=== PATIENT | male | born 1985 | race African-American/Black ===

== ENCOUNTER 2016-12-13 18:06 | Emergency (ER) | payer OTHER ==
[~2016-12-13] VITALS: Ht 182.9 cm; Wt 90.7 kg
[~2016-12-13 18:06] MED LIST: BENADRYL A12.5 MG/5 PO; MYLANTA 12 OZ355 M1 GT; NOHOMEMEDICATIONS; ULTRAM 50MG TAB50 MG PO; XANAX 0.25 MG0.25 MG PO; ZPAK PO
[2016-12-13] MEDS ORDERED: IBUPROFEN 600600 M1 PO (20:04)
[2016-12-13] MEDS ORDERED: LIORESAL 10 MG10 MG PO (20:04)
[2016-12-13] MEDS ORDERED: HYDROCODONE-AP1 EAC6 PO (20:04)
[2016-12-13 20:53] VITALS: BP 120/68
== END 2016-12-13 20:54 | disposition home or self-care (01) ==
LOC: ER 18:06
DX: S16.1XXA Strain of muscle, fascia and tendon at neck level, initial encounter (principal); S39.012A Strain of muscle, fascia and tendon of lower back, initial encounter; M25.552 Pain in left hip; J45.909 Unspecified asthma, uncomplicated; F17.210 Nicotine dependence, cigarettes, uncomplicated; F10.99 Alcohol use, unspecified with unspecified alcohol-induced disorder; Z88.1 Allergy status to other antibiotic agents; Z88.0 Allergy status to penicillin; Z88.2 Allergy status to sulfonamides; V89.2XXA Person injured in unspecified motor-vehicle accident, traffic, initial encounter; Y93.89 Activity, other specified; Y92.89 Other specified places as the place of occurrence of the external cause; Y99.8 Other external cause status